=== PATIENT | male | born 1990 | race Caucasian/White ===

== ENCOUNTER 2020-09-24 10:00 | Emergency (ER) | payer SELFPAY ==
[~2020-09-24] VITALS: Ht 188 cm; Wt 122.5 kg
[2020-09-24] MEDS ORDERED: HYDROMORPHONE 1 MG/1 ML DISP.SYRIN IM ONE (10:30)
[2020-09-24] MEDS ORDERED: ONDANSETRON 4 MG/2 ML VIAL IM ONE (10:30)
[2020-09-24] MEDS ORDERED: HYDROMORPHONE 2 MG/1 ML DISP.SYRIN ONE (10:37)
[2020-09-24] MEDS ORDERED: ONDANSETRON 4 MG/2 ML VIAL ONE (10:37)
[2020-09-24 11:03] VITALS: BP 129/49
--- NOTE | 2020-09-24 11:03 | NUR ---
Patient discharged to home in stable condition. Written and verbal after care instructions given. Patient verbalizes understanding of instructions. Stressed follow up or return to ER for worsening s/s.pt walks in steady gait. pt says feels better.
== END 2020-09-24 11:04 | disposition home or self-care (01) ==
LOC: ER 10:00
DX: M54.42 Lumbago with sciatica, left side (principal)
CPT/HCPCS: 72100; 96372; 99283; J1170; J2405; A4663

== ENCOUNTER 2021-07-08 14:49 | Emergency (ER) | payer SELFPAY ==
[~2021-07-08] VITALS: Ht 188 cm; Wt 122.5 kg
[2021-07-08 19:50] VITALS: BP 110/70
== END 2021-07-08 18:30 | disposition home or self-care (01) ==
LOC: ER 14:49
DX: S01.511A Laceration without foreign body of lip, initial encounter (principal); V49.40XA Driver injured in collision with unspecified motor vehicles in traffic accident, initial encounter; Y92.410 Unspecified street and highway as the place of occurrence of the external cause; K13.0 Diseases of lips
CPT/HCPCS: A4663